=== PATIENT | female | born 1995 | race Caucasian/White ===

== ENCOUNTER → 2023-12-21 | Outpatient (CLI) | payer BC ==
--- NOTE | 2023-12-21 09:07 | XR ---
EXAMINATION TYPE: XR cervical spine w flex/ext DATE OF EXAM: 12/21/2023 COMPARISON: NONE CLINICAL INDICATION: Female, 28 years old with history of UPPER EXT PARE; TECHNIQUE: Four views are submitted. FINDINGS: The odontoid is intact. There are no compression deformities. The prevertebral soft tissue structur es are within normal limits. Neutral view demonstrates straightening of the cervical spine. On exten ama views there is slight grade 1 retrolisthesis C3-C4 and C4-C5. There is 1 to 2 mm. On flexion vie ws there is minimal grade 1 anterolisthesis C2-3, C3-4 and C4-C5 measuring 1 to 2 mm. IMPRESSION: 1. No significant degenerative disc disease. See above. [facility], , 12/21/2023 9:05 AM
--- NOTE | 2023-12-21 09:58 | MR ---
INDICATION: Patient age:Female; 28 years old; Reason for study: R20.2 PARESTHESIA OF SKIN; PHH. COMPARISON: None available. TECHNIQUE: Multi planar, multi sequence imaging was performed through the brain. The patient was then given 9 cc of Gadavist intravenously and multi planar, T1 fat-saturation images were obtained. FINDINGS: The garcia-white junctions, ventricular system, basal cisterns appear unremarkable. Diffusion-weighted imaging shows no evidence of restricted diffusion to suggest acute/subacute infarct. Intracranial art erial flow voids are maintained. Midline structures show no abnormality. No abnormal FLAIR signal abn ormalities. The susceptibility weighted images do not reveal any evidence for micro-hemorrhage. After administration of gadolinium, no abnormal enhancement is seen. The bone marrow signal is within normal limits. The globes are unremarkable. Mild mucosal thickening of the right anterior ethmoid sinus. IMPRESSION: No evidence of intracranial mass, acute/subacute infarct, or abnormal enhancement. [facility], , 12/21/2023 9:55 AM
== END | disposition home or self-care (01) ==
LOC: RADMRIMAIN 07:03
PROVIDERS: ATTEND Family Medicine
DX: R20.2 Paresthesia of skin (principal); M54.2 Cervicalgia
CPT/HCPCS: 72052; 70553; A9585